=== PATIENT | male | born 1980 | race Caucasian/White ===

== ENCOUNTER 2019-11-21 08:13 | Emergency (ER) | payer SELFPAY ==
[~2019-11-21] VITALS: Ht 188 cm; Wt 104.0 kg
[2019-11-21] MEDS ORDERED: LORazepam 2 MG/ML, 1ML IVPush PRN (08:30)
[2019-11-21] MEDS ORDERED: PLEASE ENTER HEIGHT AND WEIGHT MC SCH (08:30)
[2019-11-21] MEDS ORDERED: PLEASE ENTER ALLERGIES MC SCH (08:30)
--- NOTE | 2019-11-21 09:55 | NUR ---
Pt awake and alert. Left wrist restraing released, [employer] called for pickup, pt to be DC'd.
--- NOTE | 2019-11-21 10:00 | NUR ---
PATIENT WOKE UP AND IS ALERT AND ORIENTED. PATIENT TOLD REASON THAT HE WAS BROUGHT IN BY [employer]. CLOTHES, SOCKS AND SHOES PROVIDED FOR PATIENT.
--- NOTE | 2019-11-21 10:20 | NUR ---
PATIENT PICKED UP AND ESCORTED OFF PROPERTY IN CUSTODY BY [place] [employer].
[2019-11-21 10:22] VITALS: BP 176/103
== END 2019-11-21 10:25 | disposition home or self-care (01) ==
LOC: ED 10:00
DX: F15.151 Other stimulant abuse with stimulant-induced psychotic disorder with hallucinations (principal); G92 Toxic encephalopathy; R41.82 Altered mental status, unspecified
CPT/HCPCS: 99283